=== PATIENT | male | born 1985 | race Caucasian/White ===

== ENCOUNTER → 2018-07-30 13:38 | Outpatient (CLI) | payer OTHER, SELFPAY ==
[2018-07-30 16:01] LABS: Thyroid Stimulating Hormone 3.16 uIU/mL (0.47-4.68)
[2018-08-03 08:09] LABS: Aldosterone/Renin Activity Rat 7.5 Ratio (0.9-28.9); Plama Renin, LC/MS/MS 0.67 ng/mL/h (0.25-5.82)
[2018-08-04 13:53] LABS: Metanephrine, Free 44 pg/mL (< OR = 57); Normetanephrine, Free 90 pg/mL (< OR = 148)
== END ==
PROVIDERS: Visit Provider Internal Medicine Cardiovascular Disease
DX: I10 Essential (primary) hypertension (principal)
CPT/HCPCS: 36415; 82088; 83835; 84244; 84443